=== PATIENT | male | born 1955 | race Caucasian/White ===

== ENCOUNTER → 2018-06-12 | Outpatient (REF) | payer BC ==
[~2018-06-12] MED LIST: ALBUDR INH; BUDE10.25 IH; CETI-175 PO; CIP500 PO; EPIN0.3P14 IM; FAM20 PO; IBU200 PO; LEVO175T37 PO; LOR5/325 PO; MULT-820 PO; PHENA200 PO; PRA20 PO; PSEU-75 PO
[2018-06-12 09:29] LABS: INR 2.68
== END ==
LOC: ZZSENDIN 09:02
PROVIDERS: ATTEND Family Medicine
DX: I48.0 Paroxysmal atrial fibrillation (principal)
CPT/HCPCS: 85610